=== PATIENT | female | born 1965 | race Caucasian/White ===

== ENCOUNTER → 2022-01-26 | Outpatient (CLI) | payer OTHER ==
--- NOTE | 2022-01-26 11:04 | XR ---
EXAMINATION TYPE: XR lumbar spine 2 or 3V DATE OF EXAM: 01/26/2022 CLINICAL HISTORY: pain TECHNIQUE: Three views of the lumbar spine are submitted. COMPARISON: None. FINDINGS: There are 5 lumbar type vertebral bodies identified. The lumbar spine shows satisfactory alignment w ithout evidence of acute fracture or dislocation. Vertebral body heights are within normal limits. Degenerative disc disease multiple levels. The overlying soft tissue appears unremarkable. IMPRESSION: No acute fracture or dislocation is seen in the lumbar spine. ICD 10 NO FRACTURE, INITIAL EVALUATION
== END | disposition home or self-care (01) ==
LOC: RADXRMAIN 10:27
PROVIDERS: ATTEND Internal Medicine
DX: M54.50 Low back pain, unspecified (principal)
CPT/HCPCS: 72100

== ENCOUNTER → 2023-01-14 | Outpatient (CLI) | payer OTHER ==
--- NOTE | 2023-01-14 10:15 | MR ---
EXAMINATION TYPE: MR cervical spine wo con DATE OF EXAM: 01/14/2023 COMPARISON: None HISTORY: Neck pain TECHNIQUE: Multiplanar, multisequence images of the cervical spine were acquired without contrast. C2-C3: No disc bulge/herniation or protrusion. No Canal stenosis. Foramina are patent bilaterally. Disc desiccation. C3-C4: No disc bulge/herniation or protrusion. No Canal stenosis. Foramina are patent bilaterally. Disc desiccation C4-C5: No evidence for degenerative disc disease. Mild broad-based disc bulging. No Canal stenosis. Foramina are patent bilaterally. Disc desiccation. C5-C6: Severe degenerative disc disease with posterior spondylosis and uncovertebral joint particular ly. Moderate right and mild left foraminal encroachment. Posterior disc osteophyte complex results in protrusion upon the anterior margin of the spinal cord and mild central stenosis.. 1 to 2 mm retroli sthesis of C5 relative to C6. C6-C7: No evidence for degenerative disc disease. No disc bulge/herniation or protrusion. No Canal stenosis. Foramina are patent bilaterally. C7-T1: No evidence for degenerative disc disease. No disc bulge/herniation or protrusion. No Canal stenosis. Foramina are patent bilaterally. Cervical segments are intact. There is normal alignment. Cervical spinal cord is limited in assessm ent due to artifact Images. Grossly no suspicious findings seen on sagittal image. Craniovertebral junction relationship s are within normal limits. There is a 8 mm oval area of signal along the anterior margin of the inf erior left parotid gland. Recommend ultrasound of the left neck attention to the parotid gland. Repre sent a parotid nodule or small lymph node. IMPRESSION: 1. Severe degenerative disc disease with posterior spondylosis and disc bulging with disc osteophyte complex protrusion upon the spinal cord resulting in mild canal stenosis and bilateral foraminal encr oachment as discussed above. 2. There is a 8 mm oval area of signal along the anterior margin of the inferior left parotid gland. Recommend ultrasound of the left neck attention to the parotid gland. Represent a parotid nodule or s mall lymph node.
== END | disposition home or self-care (01) ==
LOC: RADMRIMAIN 08:51
PROVIDERS: ATTEND Internal Medicine
DX: M50.322 Other cervical disc degeneration at C5-C6 level (principal); M99.71 Connective tissue and disc stenosis of intervertebral foramina of cervical region
CPT/HCPCS: 72141

== ENCOUNTER → 2023-04-18 | Outpatient (CLI) | payer OTHER ==
--- NOTE | 2023-04-18 19:39 | US ---
EXAMINATION TYPE: US thyroid st tissue head/neck DATE OF EXAM: 04/18/2023 COMPARISON: NONE CLINICAL INDICATION: Female, 58 years old with history of R22.0 LOCALIZED SWELLING, MASS AND LUMP, HE AD; GLAND SIZE: Right Lobe: 4.7 x 1.4 x 1.7 cm Overall Parenchyma: heterogenous Left Lobe: 2.8 x 1.2 x 1.1 cm Overall Parenchyma: heterogenous Isthmus Thickness: 0.3 cm NODULES RIGHT: # of nodules measured on right: 1 1. 0.5 X 0.5 x 0.5 cm, mid, solid or almost completely solid, hyperechoic TR 3 nodule, which is wid er than tall, with smooth margins, without echogenic foci. Prior size: no previous LEFT: # of nodules measured on left: 1 1. 1.0 X 0.5 x 0.6 cm, mid, solid or almost completely solid, hypoechoic TR 4 nodule, which is wide r than tall, with smooth margins, without echogenic foci. Prior size: no previous ISTHMUS: # of nodules measured in the isthmus: 0 [employer] notes: Bilateral neck scanned and parotid area, no evidence of lymphadenopathy. IMPRESSION: 1. A solitary solid 1 cm TR 4 nodule on the left and a 5 mm TR 3 nodule on the right. These can be re assessed at follow-up. 2. Additional targeted scanning in the left parotid gland area shows no discrete abnormality.
== END | disposition home or self-care (01) ==
LOC: RADUSWWP 15:09
PROVIDERS: ATTEND Internal Medicine
DX: E04.1 Nontoxic single thyroid nodule (principal); R22.0 Localized swelling, mass and lump, head
CPT/HCPCS: 76536

== ENCOUNTER 2023-05-25 13:05 | Emergency (ER) | payer OTHER ==
[2023-05-25 13:14] VITALS: TEMP 98.3
[2023-05-25 13:40] LABS: Basophils % (A) 0 %; Eosinophils # (A) 0.2 k/uL (0-0.7); Eosinophils % (A) 1 %; HCT 43.1 % (34.0-46.0); HGB 14.2 gm/dL (11.4-16.0); Lymphocytes # (A) 3.1 k/uL (1.0-4.8); Lymphocytes % (A) 26 %; MCH 32.3 pg (25.0-35.0); MCV 98.1 fL (80.0-100.0); Mean Platelet Volume 7.5; Monocytes # (A) 0.4 k/uL (0-1.0); Monocytes % (A) 4 %; Neutrophils # (A) 7.9 k/uL (1.3-7.7); Neutrophils % (A) 67 %; Platelet Count 368 k/uL (150-450); RBC 4.39 m/uL (3.80-5.40); RDW 12.2 % (11.5-15.5); WBC 11.8 k/uL (3.8-10.6)
[2023-05-25 13:59] LABS: ALT 26 U/L (4-34); AST 31 U/L (14-36); African American GFR (CKD) >90 (>60 ml/min/1.73 sqM); Albumin 4.8 g/dL (3.5-5.0); Alkaline Phosphatase 106 U/L (38-126); Anion Gap 14 mmol/L; Blood Urea Nitrogen 13 mg/dL (7-17); Calcium 10.2 mg/dL (8.4-10.2); Carbon Dioxide 25 mmol/L (22-30); Chloride 103 mmol/L (98-107); Glucose 94 mg/dL (74-99); Non-African American GFR(CKD) >90 (>60 ml/min/1.73 sqM); Potassium 3.7 mmol/L (3.5-5.1); Sodium 142 mmol/L (137-145); Total Bilirubin 0.5 mg/dL (0.2-1.3); Total Protein 8.2 g/dL (6.3-8.2)
[2023-05-25 14:03] LABS: INR 0.9 (<1.2); Partial Thromboplastin Time 26.9 sec (22.0-30.0); Prothrombin Time 10.3 sec (10.0-12.5)
[2023-05-25 14:05] VITALS: RESP 14
--- NOTE | 2023-05-25 14:22 | XR ---
EXAMINATION TYPE: XR chest 2V DATE OF EXAM: 05/25/2023 COMPARISON: NONE HISTORY: Hypertension TECHNIQUE: Frontal and lateral views of the chest are obtained. FINDINGS: There is no focal air space opacity, pleural effusion, or pneumothorax seen. The cardiac silhouette size is within normal limits. The osseous structures are intact. IMPRESSION: No acute cardiopulmonary process.
[2023-05-25] MEDS ORDERED: MAG HYDROX/AL HYDROX/SIMETH 30 ML, HYOSCYAMINE ELIXIR 10 ML, LIDOCAINE 2% GLYDO JELLY 1... PO STA ×3 (14:34)
[2023-05-25 15:19] LABS: Appearance,Urine Clear (Clear); Bilirubin,Urine Negative (Negative); Blood,Urine Negative (Negative); Color,Urine Colorless; Glucose,Urine (UA) Negative (Negative); Ketones,Urine Negative (Negative); Leukocyte Esterase,Urine Small (Negative); Mucus,Urine Rare /hpf; Nitrite,Urine Negative (Negative); PH, Urine 6.5 (5.0-8.0); Protein,Urine Negative (Negative); RBC,Urine <1 /hpf (0-5); Specific Gravity,Urine 1.007 (1.001-1.035); Squamous Epithelial Cell,Urine <1 /hpf (0-4); Urobilinogen,Urine <2.0 mg/dL (<2.0); WBC,Urine 10 /hpf (0-5)
--- NOTE | 2023-05-25 15:20 | US ---
EXAMINATION TYPE: US gallbladder DATE OF EXAM: 05/25/2023 COMPARISON: US 05/01/2016 CLINICAL INDICATION: Female, 58 years old with history of Ruq pain; RUQ pain intermittent x 1.5 years , has gotten worse x 2 weeks. Hx appendectomy. TECHNIQUE: Multiple sonographic images of the right upper quadrant are obtained. FINDINGS: EXAM MEASUREMENTS: Liver Length: 12.9 cm Gallbladder Wall: 0.14 cm CBD: 0.56 cm Right Kidney: 11.1 x 5.5 x 3.8 cm [employer]ARD [employer] NOTES: Limited due to gas. Pancreas: Limited visibility of pancreatic head. Liver: Appears slightly coarse in echotexture. Gallbladder: Appears wnl Evidence for sonographic Nunez's sign: No CBD: Measures upper limits of normal. Right Kidney: *Two hyperechoic foci seen lower pole. #1= 0.4 x 0.4 x 0.4 cm. #2= 0.4 x 0.6 x 0.4cm. IMPRESSION: 1. Normal gallbladder. No biliary ductal dilatation. Negative sonographic Nunez sign. 2. Limited evaluation of the pancreatic head. 3. 2 nonobstructing right renal calcifications
--- NOTE | 2023-05-25 15:41 | ED ---
General Adult HPI - General Chief complaint: Recheck/Abnormal Lab/Rx Stated complaint: High Bp,Abd Pain Time Seen by Provider: 05/25/23 13:13 Source: patient, RN notes reviewed Mode of arrival: ambulatory Limitations: no limitations - History of Present Illness Initial comments: 58-year-old female with past medical history significant for newly diagnosed hypertension presents the emergency department with a chief complaint of high blood pressure. Patient reports she was diagnosed with hypertension and started on 50 mg of losartan once daily. She reports that she is only been taking her blood pressure at night after working. She reports since starting the medication she just feels "off." She is also complaining of epigastric pain that radiates to the right upper quadrant. She endorses concerns that it may be related to her gallbladder. She denies any fever, cough, chest pain, palpitations, shortness of breath, nausea, vomiting. - Related Data Home Medications Medication Instructions Recorded Confirmed Levothyroxine (Unk Dose) 100 tab PO HS 09/08/15 09/09/15 Temazepam 30 mg PO HS 09/08/15 09/09/15 Allergies Allergy/AdvReac Type Severity Reaction Status Date / Time aspirin AdvReac Nausea & Verified 05/25/23 13:11 Vomiting codeine AdvReac Nausea & Verified 05/25/23 13:11 Vomiting Review of Systems ROS Statement: Those systems with pertinent positive or pertinent negative responses have been documented in the HPI. ROS Other: All systems not noted in ROS Statement are negative. Past Medical History Past Medical History: GERD/Reflux, Hypertension, Thyroid Disorder Additional Past Medical History / Comment(s): having n/v after eating for approx 2 mos-no abdominal pain,irreg bowel movements and bloating,wt loss of 5-7lbs in last 2 mos,PM > 2 yrs,kidney stones History of Any Multi-Drug Resistant Organisms: None Reported Past Surgical History: Appendectomy Past Anesthesia/Blood Transfusion Reactions: No Reported Reaction Additional Past Anesthesia/Blood Transfusion Reaction / Comment(s): UNK FAMILY HX Smoking Status: Former smoker Past Alcohol Use History: Rare Past Drug Use History: None Reported - Past Family History Mother History Unknown: Yes Father History Unknown: Yes General Exam - General Exam Comments Initial Comments: General: Alert, in no acute distress Head: atraumatic normocephalic. Eyes PERRL, EOMI intact, mucous membranes moist Respiratory: Lungs clear to auscultation bilaterally Cardiovascular: Heart rate regular rate and rhythm Abdominal: Soft without guarding or rebound, nontender. Nunez sign negative. Extremities: Normal inspection with full range of motion and normal capillary refill Neuroogic: alert and oriented 3, CN II-XII intact, able to ambulate with steady gait Skin: warm dry and intact with normal color Limitations: no limitations Course Vital Signs 05/25/23 05/25/23 05/25/23 13:06 13:45 14:00 Temperature 98.3 F Pulse Rate 106 H 92 98 Respiratory 18 16 14 Rate Blood Pressure 176/79 151/87 O2 Sat by Pulse 99 97 99 Oximetry 05/25/23 17:32 Temperature Pulse Rate 96 Respiratory 14 Rate Blood Pressure 145/97 O2 Sat by Pulse 100 Oximetry - Reevaluation(s) Reevaluation #1: 05/25/23 15:00 patient reevaluated. Patient reports symptomatic improvement status post GI cocktail. 05/25/23 15:37 reevaluated. Patient updated on initial Laboratory and imaging results. Aware awaiting second troponin. Reevaluation #2: 05/25/23 17:11 Should reevaluated. Patient updated on negative troponin results. Patient agreeable with the plan for discharge home. EKG Findings - EKG Comments: EKG Findings:: I interpreted the following: EKG performed at 13:30. Rate 96 bpm normal sinus rhythm. WI interval 127, saturation 86, QT/QTc 364/418 Medical Decision Making - Medical Decision Making Was pt. sent in by a medical professional or institution (, PA, HIGH SCHOOL TUTOR, urgent care, hospital, or [facility]...) When possible be specific @ -[No] Did you speak to anyone other than the patient for history (EMS, parent, family, police, friend...)? What history was obtained from this source @ -[No] Did you review nursing and triage notes (agree or disagree)? Why? @ -[I reviewed and agree with nursing and triage notes] Were old charts reviewed (outside hosp., previous admission, EMS record, old EKG, old radiological studies, urgent care reports/EKG's, [facility] records)? Report findings @ -[No old charts were reviewed] Differential Diagnosis (chest pain, altered mental status, abdominal pain women, abdominal pain men, vaginal bleeding, weakness, fever, dyspnea, syncope, headache, dizziness, GI bleed, back pain, seizure, CVA, palpatations, mental health, musculoskeletal)? @ -[not applicable] EKG interpreted by me (3pts min.). @ -[As above] X-rays interpreted by me (1pt min.). @ -yes CT interpreted by me (1pt min.). @ -[None done] U/S interpreted by me (1pt. min.). @ -yes What testing was considered but not performed or refused? (CT, X-rays, U/S, labs)? Why? @ -[None] What meds were considered but not given or refused? Why? @ -[None] Did you discuss the management of the patient with other professionals (professionals i.e. , PA, HIGH SCHOOL TUTOR, lab, RT, psych nurse, social service manager, harvesting contractor, teacher, home school liaison officer, casework manager)? Give summary @ -[No] Was smoking cessation discussed for >3mins.? @ -[No] Was critical care preformed (if so, how long)? @ -[No] Were there social determinants of health that impacted care today? How? (Homelessness, low income, unemployed, alcoholism, drug addiction, transportation, low edu. Level, literacy, decrease access to med. care, skilled nursing, rehab)? @ -[No] Was there de-escalation of care discussed even if they declined (Discuss DNR or withdrawal of care, Hospice)? DNR status @ -[No] What co-morbidities impacted this encounter? (DM, HTN, Smoking, COPD, CAD, Cancer, CVA, ARF, Chemo, Hep., AIDS, mental health diagnosis, sleep apnea, mor bid obesity)? @ -[None] Was patient admitted / discharged? Hospital course, mention meds given and route, prescriptions, significant lab abnormalities, going to OR and other pertinent info. @ -Discharge. This is a 58-year-old female who presents the emergency department with hypertension. Patient had a thorough history and physical exam performed while in the ED. Physical exam unremarkable. Initial blood pressure is 170s over 80s. Patient blood pressure maintains to be 150s over 80s during the course of the ED. Heart rate regular rate and rhythm, lungs clear to auscultation bilaterally abdomen soft nontender. Patient had laboratory studies performed which were unremarkable including WBC 11.8 hemoglobin 14.2 coags unremarkable sodium 142, potassium 3.7 BUN 13, creatinine 0.65 Serial troponins negative. Urinalysis with small amount of leukocyte esterase. Urine culture pending. Patient's chest x-ray does not reveal any intrapleural process. Abdominal ultrasound does not reveal any acute gallbladder pathology. Patient was provided 1 L IV fluids and GI cocktail with symptomatic improvement. She is agreeable with the plan for discharge home. She was educated on taking her blood pressure log twice a day in the same spot the same cough on the same arm. Recommend close follow-up with her PCP in 1-2 days. She is discharged in stable condition. Case discussed with Dr. Gomez [facility] who agrees with plan of care Undiagnosed new problem with uncertain prognosis? @ -[No] Drug Therapy requiring intensive monitoring for toxicity (Heparin, Nitro, Insulin, Cardizem)? @ -[No] Were any procedures done? @ -[No] Diagnosis/symptom? @ -HTN - RUQ abdominal pain Acute, or Chronic, or Acute on Chronic? @ -Acute Uncomplicated (without systemic symptoms) or Complicated (systemic symptoms)? @ -Uncomplicated Side effects of treatment? @ -[No] Exacerbation, Progression, or Severe Exacerbation? @ -[No] Poses a threat to life or bodily function? How? (Chest pain, USA, CT, pneumonia, PE, COPD, DKA, ARF, appy, cholecystitis, CVA, Diverticulitis, Homicidal, Suicidal, threat to staff... and all critical care pts) @ -Low likelihood - Lab Data Result diagrams: 05/25/23 13:25 05/25/23 13:25 Lab Results 05/25/23 05/25/23 05/25/23 Range/Units 13:25 13:25 13:25 WBC 11.8 H (3.8-10.6) k/uL RBC 4.39 (3.80-5.40) m/uL Hgb 14.2 (11.4-16.0) gm/dL Hct 43.1 (34.0-46.0) % MCV 98.1 (80.0-100.0) fL MCH 32.3 (25.0-35.0) pg MCHC 33.0 (31.0-37.0) g/dL RDW 12.2 (11.5-15.5) % Plt Count 368 (150-450) k/uL MPV 7.5 Neutrophils % 67 % Lymphocytes % 26 % Monocytes % 4 % Eosinophils % 1 % Basophils % 0 % Neutrophils # 7.9 H (1.3-7.7) k/uL Lymphocytes # 3.1 (1.0-4.8) k/uL Monocytes # 0.4 (0-1.0) k/uL Eosinophils # 0.2 (0-0.7) k/uL Basophils # 0.0 (0-0.2) k/uL PT 10.3 (10.0-12.5) sec INR 0.9 (<1.2) APTT 26.9 (22.0-30.0) sec Sodium (137-145) mmol/L Potassium (3.5-5.1) mmol/L Chloride (98-107) mmol/L Carbon Dioxide (22-30) mmol/L Anion Gap mmol/L BUN (7-17) mg/dL Creatinine (0.52-1.04) mg/dL Est GFR (CKD-EPI)AfAm (>60 ml/min/1.73 sqM) Est GFR (CKD-EPI)NonAf (>60 ml/min/1.73 sqM) Glucose (74-99) mg/dL Calcium (8.4-10.2) mg/dL Total Bilirubin (0.2-1.3) mg/dL AST (14-36) U/L ALT (4-34) U/L Alkaline Phosphatase (38-126) U/L Troponin I (0.000-0.034) ng/mL Total Protein (6.3-8.2) g/dL Albumin (3.5-5.0) g/dL Urine Color Colorless Urine Appearance Clear (Clear) Urine pH 6.5 (5.0-8.0) Ur Specific Hyndman 1.007 (1.001-1.035) Urine Protein Negative (Negative) Urine Glucose (UA) Negative (Negative) Urine Ketones Negative (Negative) Urine Blood Negative (Negative) Urine Nitrite Negative (Negative) Urine Bilirubin Negative (Negative) Urine Urobilinogen <2.0 (<2.0) mg/dL Ur Leukocyte Esterase Small H (Negative) Urine RBC <1 (0-5) /hpf Urine WBC 10 H (0-5) /hpf Ur Squamous Epith Cells <1 (0-4) /hpf Urine Mucus Rare H (None) /hpf 05/25/23 05/25/23 05/25/23 Range/Units 13:25 13:25 16:08 WBC (3.8-10.6) k/uL RBC (3.80-5.40) m/uL Hgb (11.4-16.0) gm/dL Hct (34.0-46.0) % MCV (80.0-100.0) fL MCH (25.0-35.0) pg MCHC (31.0-37.0) g/dL RDW (11.5-15.5) % Plt Count (150-450) k/uL MPV Neutrophils % % Lymphocytes % % Monocytes % % Eosinophils % % Basophils % % Neutrophils # (1.3-7.7) k/uL Lymphocytes # (1.0-4.8) k/uL Monocytes # (0-1.0) k/uL Eosinophils # (0-0.7) k/uL Basophils # (0-0.2) k/uL PT (10.0-12.5) sec INR (<1.2) APTT (22.0-30.0) sec Sodium 142 (137-145) mmol/L Potassium 3.7 (3.5-5.1) mmol/L Chloride 103 (98-107) mmol/L Carbon Dioxide 25 (22-30) mmol/L Anion Gap 14 mmol/L BUN 13 (7-17) mg/dL Creatinine 0.65 (0.52-1.04) mg/dL Est GFR (CKD-EPI)AfAm >90 (>60 ml/min/1.73 sqM) Est GFR (CKD-EPI)NonAf >90 (>60 ml/min/1.73 sqM) Glucose 94 (74-99) mg/dL Calcium 10.2 (8.4-10.2) mg/dL Total Bilirubin 0.5 (0.2-1.3) mg/dL AST 31 (14-36) U/L ALT 26 (4-34) U/L Alkaline Phosphatase 106 (38-126) U/L Troponin I <0.012 <0.012 (0.000-0.034) ng/mL Total Protein 8.2 (6.3-8.2) g/dL Albumin 4.8 (3.5-5.0) g/dL Urine Color Urine Appearance (Clear) Urine pH (5.0-8.0) Ur Specific Hyndman (1.001-1.035) Urine Protein (Negative) Urine Glucose (UA) (Negative) Urine Ketones (Negative) Urine Blood (Negative) Urine Nitrite (Negative) Urine Bilirubin (Negative) Urine Urobilinogen (<2.0) mg/dL Ur Leukocyte Esterase (Negative) Urine RBC (0-5) /hpf Urine WBC (0-5) /hpf Ur Squamous Epith Cells (0-4) /hpf Urine Mucus (None) /hpf Disposition Clinical Impression: Abdominal pain, HTN (hypertension) Disposition: HOME SELF-CARE Condition: Stable Instructions (If sedation given, give patient instructions): Abdominal Pain (ED), Hypertensive Crisis (ED) Additional Instructions: These maintaining a blood pressure log and record at morning and at night Please continue taking and 50 mg once a day Please return to the nearest emergency department if symptoms worsen or persist Is patient prescribed a controlled substance at d/c from ED?: No Referrals: Jeff Alvarado MD [Primary Care Provider] - 1-2 days Time of Disposition: 16:48
[2023-05-25 17:43] VITALS: BP 145/97; PULSE 96
== END 2023-05-25 17:41 | disposition home or self-care (01) ==
LOC: EC 13:05
DX: I10 Essential (primary) hypertension (principal); R10.11 Right upper quadrant pain; E07.9 Disorder of thyroid, unspecified; Z79.890 Hormone replacement therapy; Z88.5 Allergy status to narcotic agent; Z88.8 Allergy status to other drugs, medicaments and biological substances
CPT/HCPCS: 36415; 71046; 76705; 80053; 81001; 84484; 85025; 85610; 85730; 87086; 93005; 99284